=== PATIENT | male | born 1945 | race Caucasian/White ===

== ENCOUNTER 2022-04-27 05:28 | Day surgery (SDC) | payer OTHER ==
[2022-04-24 12:42] VITALS: BMI 28.4
[2022-04-27 09:49] VITALS: BP 125/65; PULSE 73; RESP 20; TEMP 97
== END 2022-04-27 09:40 | disposition home or self-care (01) ==
LOC: JASU-ENDO 05:28
PROVIDERS: ATTEND Internal Medicine Gastroenterology
PROC: 0DBB8ZX Excision of Ileum, Via Natural or Artificial Opening Endoscopic, Diagnostic (ICD-10-PCS; 2022-04-27)
PROC: 0DBM8ZX Excision of Descending Colon, Via Natural or Artificial Opening Endoscopic, Diagnostic (ICD-10-PCS; 2022-04-27)
PROC: 0DB98ZX Excision of Duodenum, Via Natural or Artificial Opening Endoscopic, Diagnostic (ICD-10-PCS; 2022-04-27)
PROC: 0DB78ZX Excision of Stomach, Pylorus, Via Natural or Artificial Opening Endoscopic, Diagnostic (ICD-10-PCS; 2022-04-27)
PROC: 0DB68ZX Excision of Stomach, Via Natural or Artificial Opening Endoscopic, Diagnostic (ICD-10-PCS; 2022-04-27)
PROC: 0DBH8ZX Excision of Cecum, Via Natural or Artificial Opening Endoscopic, Diagnostic (ICD-10-PCS; principal; 2022-04-27 08:00)
DX: Z12.11 Encounter for screening for malignant neoplasm of colon (principal); D12.4 Benign neoplasm of descending colon; K57.30 Diverticulosis of large intestine without perforation or abscess without bleeding; K25.3 Acute gastric ulcer without hemorrhage or perforation; K29.50 Unspecified chronic gastritis without bleeding; K64.4 Residual hemorrhoidal skin tags; K64.8 Other hemorrhoids; K92.1 Melena
CPT/HCPCS: 88305-TC; 88342-TC

== ENCOUNTER 2023-02-19 05:41 | Day surgery (SDC) | payer OTHER ==
[2023-02-18 14:04] VITALS: BMI 27.3
[2023-02-19 14:29] VITALS: TEMP 97.9
[2023-02-19 14:30] VITALS: PULSE 66
[2023-02-19 14:32] VITALS: BP 147/64; RESP 17
== END 2023-02-19 13:50 | disposition home or self-care (01) ==
LOC: JASU-ENDO 05:41
PROVIDERS: ATTEND Internal Medicine Gastroenterology
PROC: 0DB78ZX Excision of Stomach, Pylorus, Via Natural or Artificial Opening Endoscopic, Diagnostic (ICD-10-PCS; principal; 2023-02-19 12:30)
DX: K44.9 Diaphragmatic hernia without obstruction or gangrene (principal); K22.2 Esophageal obstruction; K21.00 Gastro-esophageal reflux disease with esophagitis, without bleeding; K25.3 Acute gastric ulcer without hemorrhage or perforation; I10 Essential (primary) hypertension
CPT/HCPCS: 88305-TC; 88342-TC